=== PATIENT | female | born 1985 | race Hispanic/Latino ===

== ENCOUNTER 2018-11-21 14:17 | Day surgery (SDC) | payer OTHER ==
[2018-11-21 15:04] VITALS: BMI 24.7
[2018-11-21 15:50] LABS: Amnisure Test No Membranes Rupture (No Rupture)
[2018-11-21 15:51] LABS: Amnisure Internal Control QC ACCEPTABLE (ACCEPTABLE)
--- NOTE | 2018-11-21 20:38 | PRG ---
DATE OF SERVICE: 11/21/2018 OB ER ENCOUNTER PRIMARY OB: Dr. Jenniffer Perez CHIEF COMPLAINT: Lower back pain and pelvic pressure. HISTORY OF PRESENT ILLNESS: The patient is a 33-year-old G4, P3 female with an intrauterine at 33 weeks and 3 days, who is presenting today with back pain started last night, right lower back pain and pelvic pressure/vaginal pressure. The patient reports that she feels like the baby wants to come out. The patient reports that her main pain is associated with activity and movement including walking, rolling over in bed, and getting out of the car. The patient does have a 2 year old at home that she picks up periodically. She reports that she did normal routine activities including housework and laundry. The patient reports she felt a couple of contractions today, where her abdomen gets hard. The patient also reports increased watery discharge over the last week or so. The patient denies recent intercourse. She denies fever, fall, headache, chest pain, or shortness of breath. The patient has had some nausea, but this has been throughout the . Denies vomiting. Denies diarrhea or constipation. Denies any new rashes. Denies hip problems or knee problems or muscle weakness. She does report some urgency with urination. PAST MEDICAL HISTORY: Negative. PAST SURGICAL HISTORY: She has had an ovary removed in 2014. OB HISTORY: She has had 3 previous term uncomplicated deliveries. ALLERGIES: NO KNOWN DRUG ALLERGIES. MEDICATIONS: Iron and vitamins. SOCIAL HISTORY: Denies drug, alcohol, or tobacco use. OB LABS: Blood type is A positive. Antibody screen unavailable. Syphilis in the first trimester is nonreactive. Hepatitis B surface antigen is nonreactive in the first trimester. HIV is nonreactive. She is rubella immune. Her 1-hour glucose tolerance test is 80. REVIEW OF SYSTEMS: Per HPI. PHYSICAL EXAMINATION: VITAL SIGNS: Blood pressure is 106/57, heart rate of 77, respiratory rate of 20, temperature 98.4. GENERAL: She appears to be in no acute distress. She is alert, oriented, cooperative, and pleasant to interact with. HEAD: Normocephalic and atraumatic. LUNGS: Clear to auscultation bilaterally. HEART: Has regular rate and rhythm. ABDOMEN: Soft with nontender. EXTREMITIES: Nontender nonedematous. She does have a right lower back tenderness to palpation around her SI joint and her gluteal muscles in that region, which is her primary source of pain. : The patient has vulva without masses, lesions, or erythema. Perineum appears dry on speculum exam. The patient has minimal discharge. No pulling on Valsalva. Cervix appears visibly closed on bimanual exam. The patient does have a lot of tenderness along her vaginal labial wall. Cervix is closed and thick and head is palpable through the vaginal wall and fairly low in the pelvis. heart tracing performed for abdominal pain and and/pelvic pain. Baseline is noted to be/back pain. A baseline is noted to be in the 140s with moderate long-term variability, positive 15 x 15 accelerations, no decelerations. She has some irritability visible. No contraction pattern. AmniSure test was collected and is negative. Her VPIII was collected and is negative for Trichomonas, Gardnerella, and Sharon. Urinalysis is still pending. ASSESSMENT AND PLAN: The patient is a 33-year-old female with an intrauterine at 33 weeks with a primary musculoskeletal pain of . She has no evidence of vaginal infection and no evidence of rupture of membranes. A urinalysis is pending. The patient is being discharged to home with instructions to follow up later this afternoon with results. We will be transmitting a prescription to the local [facility] on [address], should something require antibiotic treatment. The patient has expressed understanding. Fetus has been reassuring and reactive. The patient is being discharged and given instructions to follow up with her primary OB instead. Job ID: [id number]
== END 2018-11-21 16:18 | disposition home or self-care (01) ==
LOC: L&D/OP 14:17
PROVIDERS: ATTEND Family Medicine
DX: O99.89 Other specified diseases and conditions complicating pregnancy, childbirth and the puerperium (principal); M54.5 Low back pain; R10.2 Pelvic and perineal pain; Z3A.33 33 weeks gestation of pregnancy; Z90.721 Acquired absence of ovaries, unilateral; Z79.899 Other long term (current) drug therapy
CPT/HCPCS: 84112; 87480; 87510; 87660; 99284

== ENCOUNTER 2018-12-04 11:30 | Day surgery (SDC) | payer OTHER ==
--- NOTE | 2018-12-04 11:56 | PDOC.LDHP ---
Labor and Delivery H&P Chief complaint: other HPI: 33 y/o at 35w2d sent from clinic for NST after being on the monitor there for 30 mins with nonreactive NST. Mild cramping but denies VB, LOF, ctx. +FM here. ROS neg for HEENT, cv, pulm, gi, gu, neuro, psych, skin, musculoskeletal or constitutional symptoms other than mentioned above. OB History Details: 3 prior term SVDs Current complications: none Past Medical History: None Current medications: pre- vitamins, iron Previous surgical history: other (ovary removed) Allergies/Adverse Reactions: Allergies Allergy/AdvReac Type Severity Reaction Status Date / Time No Known Allergies Allergy Unverified 12/04/18 11:57 Social history: none - Physical Exam Vital signs reviewed and normal: yes General: NAD, resting Lungs: nonlabored breathing Abdomen: gravid Extremeties: no edema FHT: category 1 (140s, mod variability, + accels, no decels) [place] contractions every: occasional - Assessment 33 y/o at 35w2d here for NST/BPP. status reassuring with BPP 08/19. - Plan -: D/c home with precautions. Advised to follow up as scheduled.
[2018-12-04 12:10] VITALS: BMI 23.0
--- NOTE | 2018-12-04 14:29 | ULT ---
ULTRASOUND BIOPHYSICAL PROFILE: 12/04/2018 HISTORY: A 33-year-old female, in third trimester of , with nonreactive nonstress test. FINDINGS: breathin tone: 2 movement: 2 Amniotic fluid volume: 2 lie: Cephalic Placenta: Posterior SCARLETT: 6.5 cm heart rate: 143 BPM IMPRESSION: Normal biophysical profile score of 8/8, excluding the non-stress test. omkar [] POS: AISHA
== END 2018-12-04 13:30 | disposition home or self-care (01) ==
LOC: L&D/OP 11:30
PROVIDERS: ATTEND Family Medicine
DX: Z01.89 Encounter for other specified special examinations (principal); Z3A.35 35 weeks gestation of pregnancy; Z79.899 Other long term (current) drug therapy; Z90.721 Acquired absence of ovaries, unilateral
CPT/HCPCS: 76819; 99282

== ENCOUNTER → 2018-12-04 | Day surgery (SDC) | payer OTHER | LOC: CANPRESDC → L&D/OP 11:28 | PROVIDERS: ATTEND Family Medicine | DX: Z53.9 Procedure and treatment not carried out, unspecified reason (principal) ==

== ENCOUNTER 2018-12-17 19:32 | Inpatient (IN) | payer OTHER ==
[2018-12-17 20:21] VITALS: BP 108/68; TEMP 97.9; BMI 22.8
[2018-12-17] MEDS ORDERED: Acetaminophen/Codeine 30-300mg Tablet PO PRN ×2 (20:34)
--- NOTE | 2018-12-17 20:36 | PDOC.LDHP ---
Labor and Delivery H&P HPI: Pastient of Dr Perez Here for CTX Location: Triage HPI: 33 yo Abs2 at 37 weeks 1 day with irregular CTX, no VB, no LOF...good FM. Was closed last week in office. Review of Systems: complete ROS completed and as per HPI Current gestational age (weeks): 37 (1 day) Dating criteria: last menstrual period Grav: 6 Para: 3 OB History Details: All SVDs, no CS...SAB X 2 Current complications: none Abnormal US findings: No Current medications: pre- vitamins Previous surgical history: none Allergies/Adverse Reactions: Allergies Allergy/AdvReac Type Severity Reaction Status Date / Time No Known Allergies Allergy Verified 12/17/18 20:21 - Physical Exam Vital signs reviewed and normal: yes (108/68, afebrile) General: NAD Heart: RRR Lungs: CTAB Abdomen: gravid Extremeties: no edema FHT: category 1 [place] contractions every: irreguar pattern - Vaginal Exam cm dilated: 2 Effacement: 50% Station: -3 - Assessment Latent labor at early term, multip. - Plan Plan: observation in L&D (we will monitor and recheck in 1 hour. No evidence VB or LOF; normotensive)
[2018-12-17] MEDS ORDERED: Ondansetron PF 4 MG/2 ML Vial IVP PRN (22:00)
[2018-12-17] MEDS ORDERED: Promethazine HCl 25 MG/ML VIAL IM PRN (22:00)
[2018-12-17] MEDS ORDERED: HYDROcodone/Acetaminophen 5/325 mg Tablet PO PRN ×2 (22:00)
[2018-12-17] MEDS ORDERED: Butorphanol Tartrate 1 MG/ML VIAL SLOW IVP PRN (22:00)
[2018-12-17] MEDS ORDERED: Lidocaine 1% (PF) 30 ML VIAL SC PRN (22:00)
[2018-12-17] MEDS ORDERED: NS / Oxytocin 40 units/1000ml 1,000 ML IV PRN (22:00)
[2018-12-17] MEDS ORDERED: Ibuprofen 800 MG TAB PO PRN (22:00)
[2018-12-17] MEDS ORDERED: Lactated Ringer's 1,000 ML IV SCH (22:00)
--- NOTE | 2018-12-17 22:04 | PDOC.EVN ---
Event Note - Event Note Event Note: Recheck is 3cm from 2cm... I will admit to Dr Perez Unknown GBS so we will use risk factors for PNG
[2018-12-17 22:58] LABS: Hemoglobin 9.6 g/dL (12.0-16.0); Mean Corpuscular HGB CONC 31.7 g/dL (32.0-36.0); Mean Corpuscular Hemoglobin 26.2 pg (27.0-31.0); Mean Corpuscular Volume 82.8 fL (78.0-98.0); Platelet Count 284 thou/uL (130-400); RBC Distribution Width 16.9 % (11.5-14.5); Red Blood Cell (RBC) Count 3.65 mill/uL (4.20-5.40); White Blood Cell (WBC) Count 9.4 thou/uL (4.8-10.8)
[2018-12-17 23:37] LABS: Syphilis Antibody Nonreactive (Nonreactive); Syphilis Antibody Index 0.04 S/CO (<1.00 Non-Reactive)
[2018-12-17 23:44] LABS: HBSAg Index 0.15 S/CO (0-0.99); HIV (1/2) Antibody/Antigen Non-Reactive (NonReactive); HIV 1/2 INDEX 0.09 S/CO (<1.00); Hep B Surf Ag Non-Reactive S/CO (NonReactive)
== END 2018-12-18 07:12 | disposition home health service (06) | DRG 833 ==
LOC: L&D/OP 19:32 → L&D-LIB 22:57
PROVIDERS: ADMIT Family Medicine; ATTEND Family Medicine
DX: O47.1 False labor at or after 37 completed weeks of gestation (principal); Z3A.37 37 weeks gestation of pregnancy; O99.013 Anemia complicating pregnancy, third trimester; D64.9 Anemia, unspecified; Z79.899 Other long term (current) drug therapy
CPT/HCPCS: 85027; 86780; 86850; 86900; 86901; 87340; 87389; 99285

== ENCOUNTER 2019-01-01 14:00 | Inpatient (IN) | payer OTHER ==
[2019-01-01] MEDS ORDERED: Acetaminophen 500 MG TAB PO PRN (15:04)
[2019-01-01] MEDS ORDERED: Methylergonovine 0.2 MG/ML VIAL IM PRN (15:04)
[2019-01-01] MEDS ORDERED: Carboprost 250 MCG/ML AMP IM PRN (15:04)
[2019-01-01] MEDS ORDERED: Lidocaine 1% (PF) 30 ML VIAL SC PRN (15:04)
[2019-01-01] MEDS ORDERED: HYDROcodone/Acetaminophen 5/325 mg Tablet PO PRN (15:04)
[2019-01-01] MEDS ORDERED: Promethazine HCl 25 MG/ML VIAL IM PRN (15:04)
[2019-01-01] MEDS ORDERED: Butorphanol Tartrate 1 MG/ML VIAL SLOW IVP PRN (15:04)
[2019-01-01] MEDS ORDERED: Misoprostol 200 MCG TAB PR PRN (15:04)
[2019-01-01] MEDS ORDERED: Ondansetron PF 4 MG/2 ML Vial IVP PRN (15:04)
[2019-01-01] MEDS ORDERED: Ibuprofen 800 MG TAB PO PRN (15:04)
[2019-01-01 15:15] VITALS: BMI 23.8
[2019-01-01] MEDS ORDERED: Lactated Ringer's 1,000 ML IV SCH (15:15)
[2019-01-01] MEDS ORDERED: NS w/ Oxytocin 10 units 500 ML IV SCH (15:15)
[2019-01-01 15:29] LABS: Mean Corpuscular HGB CONC 31.8 g/dL (32.0-36.0); Mean Corpuscular Hemoglobin 26.3 pg (27.0-31.0); Mean Corpuscular Volume 82.8 fL (78.0-98.0); Mean Platelet Volume 8.2 fL (7.4-10.4); Platelet Count 310 thou/uL (130-400); RBC Distribution Width 16.4 % (11.5-14.5); White Blood Cell (WBC) Count 9.5 thou/uL (4.8-10.8)
[2019-01-01 16:21] LABS: HBSAg Index 0.23 S/CO (0-0.99); Hep B Surf Ag Non-Reactive S/CO (NonReactive); Syphilis Antibody Nonreactive (Nonreactive); Syphilis Antibody Index 0.04 S/CO (<1.00 Non-Reactive)
[2019-01-01] MEDS ORDERED: Lidocaine 1% (PF) 30 ML VIAL ONE (21:06)
[2019-01-01] MEDS ORDERED: Oxytocin 10 UNITS/ML VIAL ONE (21:06)
[2019-01-01] MEDS: NS / Oxytocin 40 units/1000ml 1,000 ML IV PRN ×2 (21:14→22:26)
[2019-01-01] MEDS ORDERED: Benzocaine/Menthol 20-0.5% 60 ML CAN TOP PRN (22:57)
[2019-01-01] MEDS ORDERED: NS / Oxytocin 40 units/1000ml 1,000 ML IV SCH (22:57)
[2019-01-01] MEDS ORDERED: Preparation H Ointment 28 GM TUBE PR PRN (22:57)
[2019-01-01] MEDS ORDERED: Bisacodyl 10 MG SUPP PR PRN (22:57)
[2019-01-01] MEDS ORDERED: Milk Of Magnesia 30 ML UDCUP PO PRN (22:57)
[2019-01-01] MEDS: Ibuprofen 800 MG TAB PO SCH (23:14)
[2019-01-02] MEDS: Ibuprofen 800 MG TAB PO SCH ×3 (06:14→20:46)
[2019-01-02] MEDS ORDERED: Adacel (T-DAP) 0.5 ML SYRINGE IM ONE (09:00)
[2019-01-02] MEDS ORDERED: Sodium Chloride 0.9% 10 ML ONE (09:30)
[2019-01-02] MEDS: Docusate Calcium (SURFAK) 240 MG CAP PO SCH ×2 (09:34→20:46)
[2019-01-02] MEDS: Ferrous Sulfate 325 MG TAB PO SCH ×2 (09:34→18:34)
--- NOTE | 2019-01-02 12:14 | PDOC.PP ---
Post Progress Note Post Day #: 1 Subjective: Doing well. No complaints. Lochia normal. well. PO intake tolerated: yes Flatus: yes Ambulation: yes Vital Signs (12 hours) Temp Pulse Resp BP 01/02/19 06:14 97.8 F 71 18 102/63 01/02/19 01:50 98.2 F 79 18 100/58 L 01/02/19 00:30 98.2 F 86 18 108/62 Weight Weight 130 lb - Physical Examination General: NAD Cardiovascular: no m/r/g, RRR Respiratory: clear to auscultation bilaterally, non-labored breathing Abdominal: + bowel sounds, lochia, no distention, appropriately TTP Result Diagrams: 01/01/19 15:02 Additional Labs: Post Labs Blood Type A POSITIVE 01/01/19 15:02 Hep Bs Antigen Non-Reactive S/CO (NonReactive) 01/01/19 15:02 (1) Vaginal delivery Code(s): O80 - ENCOUNTER FOR FULL-TERM UNCOMPLICATED DELIVERY Status: Acute - Assessment/Plan Routine PP care. D/C home tomorrow 01/03.
[2019-01-02] MEDS: HYDROcodone/Acetaminophen 5/325 mg Tablet PO PRN (20:46)
[2019-01-03] MEDS: Ibuprofen 800 MG TAB PO SCH (06:26)
[2019-01-03 08:52] VITALS: BP 112/58; TEMP 97.9
[2019-01-03] MEDS: Ferrous Sulfate 325 MG TAB PO SCH (08:53)
[2019-01-03] MEDS: Docusate Calcium (SURFAK) 240 MG CAP PO SCH (09:27)
--- NOTE | 2019-01-03 10:55 | PDOC.PP ---
Post Progress Note Post Day #: 2 Subjective: Doing well. ready to go home. PO intake tolerated: yes Flatus: yes Ambulation: yes Vital Signs (12 hours) Temp Pulse Resp BP Pulse Ox 01/03/19 08:51 97.9 F 65 20 112/58 L 98 01/03/19 00:00 98.2 F 67 20 117/67 Weight Weight 130 lb - Physical Examination General: NAD Cardiovascular: no m/r/g, RRR Respiratory: clear to auscultation bilaterally, non-labored breathing Abdominal: + bowel sounds, lochia, no distention, appropriately TTP Result Diagrams: 01/01/19 15:02 Additional Labs: Post Labs Blood Type A POSITIVE 01/01/19 15:02 Hep Bs Antigen Non-Reactive S/CO (NonReactive) 01/01/19 15:02 (1) Vaginal delivery Code(s): O80 - ENCOUNTER FOR FULL-TERM UNCOMPLICATED DELIVERY Status: Acute - Assessment/Plan Routine PP care D/C home F/U in 6 weeks
[2019-01-03] MEDS: HYDROcodone/Acetaminophen 5/325 mg Tablet PO PRN (12:05)
--- NOTE | 2019-01-04 10:01 | DN ---
DATE OF PROCEDURE: 01/01/2019 PREOPERATIVE DIAGNOSIS: Term intrauterine in labor. POSTOPERATIVE DIAGNOSIS: Term intrauterine in labor. PROCEDURE PERFORMED: Normal spontaneous vaginal delivery. ANESTHESIA: None. BRIEF DELIVERY SUMMARY: This is a 33-year-old, MULTIP, who presented in labor. She progressed quickly to complete and pushing. She delivered a live female infant head away. Mouth and nares were bulb suctioned at the perineum. There was no nuchal cord. Shoulders and body easily followed. The umbilical cord was doubly clamped and cut and cord blood was collected and sent for analysis. The placenta delivered spontaneously and intact with a three-vessel umbilical cord. Uterine fundus was firm following evacuation of the placenta. Mom and baby were left with the nurse in excellent condition, . Job ID: [id number]
== END 2019-01-03 12:40 | disposition home or self-care (01) | DRG 807 ==
LOC: L&D 14:18 → 3SW 22:38
PROVIDERS: ADMIT Family Medicine; ATTEND Family Medicine
PROC: 10E0XZZ Delivery of Products of Conception, External Approach (ICD-10-PCS; principal; 2019-01-01)
PROC: 10907ZC Drainage of Amniotic Fluid, Therapeutic from Products of Conception, Via Natural or Artificial Opening (ICD-10-PCS; 2019-01-01)
DX: O69.81X0 Labor and delivery complicated by cord around neck, without compression, not applicable or unspecified (principal); Z37.0 Single live birth; Z3A.39 39 weeks gestation of pregnancy
CPT/HCPCS: 85027; 86780; 86850; 86900; 86901; 87340; 90715; J2001; J2590